=== PATIENT | female | born 1990 | race Caucasian/White ===

== ENCOUNTER 2016-09-26 06:00 | Inpatient (IN) ==
--- NOTE | 2016-09-26 08:59 | OB/GYN History & Physical ---
Date of Encounter: 09/26/16 Time of Encounter: 08:54 Assessment and Plan (1) 39 weeks gestation of Current visit: Yes Status: Acute Patient is a at 39.3 weeks with no complications presents for induction. Plan to proceed with induction of labor and expectant management. History of Present Illness Chief complaint: Induction, at 39.3 weeks HPI: Ms. Corley is a 26 year old female at 39.3 weeks with medical history including vaginal adhesion removal in 1994, history of seizures, and oral cold sores who present for induction of labor. Patient denies vaginal discharge or bleeding and contractions. Patient reports good movement. No complications reported for this . Denies fevers, chills, sweats, changes in vision or hearing, nausea, vomiting, chest pain, shortness of breath , abdominal pain, changes in bowels or bladder, dysuria, weakness, or loss of sensation. Patient reports lower extremity swelling. GBS negative, B positive Hep B negative, Hep C negative, HIV negative, Rubella positive, Treponema negative, varicella unknown Past Med Surg Social Fam HX - Past Medical History Source: patient, old records reviewed Medical history: seizures Psychiatric history: anxiety - Past Surgical History Surgical History: other (vaginal adhesions 1994) - Social History Smoking Status: Never smoker Smokeless Tobacco Status: No Alcohol use: none Drug use: none Occupational status: employed Current living situation: Home - Independent, With Family Activity Level: Independent ambulation Recent Out of Country Travel Within the Last 8 Weeks: No Exposure or Possible Exposure to Illness During Travel: No - Family History Mother Adopted: No Living Status: Still Living Hx Family Cardiac Disorders: Yes (htn) Hx Family Respiratory Disorders: No Hx Family Cancer: No Hx Family GI Disorders: No Hx Family Endocrine Disorder: No Hx Family Neuromuscular Disorders: No Hx Family Neurologic Disorders: No Hx Family HEENT Disorders: No Hx Family Autoimmune Disorders: No Father Hx Family Cardiac Disorders: No Hx Family Respiratory Disorders: No Hx Family Cancer: No Hx Family GI Disorders: No Hx Family Genitourinary Disorders: No Hx Family Endocrine Disorder: No Hx Family Musculoskeletal Disorders: No Hx Family Neuromuscular Disorders: No Hx Family Neurologic Disorders: No Hx Family HEENT Disorders: No Hx Family Autoimmune Disorders: No Hx Family Reproductive Disorders: No Hx Family Psychosocial Disorders: No Hx Family Medical Disorders: No Obstetrical History - Pregnancies : 2 Para: 0 Term: 0 : 0 Ab's: 1 Livin Medications and Allergies Ferrous Sulfate [Iron] 1 tab PO DAILY 08/01/16 [History] Vit Calc,Iron,Folic [ Vitamins] 1 tab PO DAILY 08/01/16 [ History] Allergies No Known Allergies Allergy (Verified 09/26/16 09:21) Review of System OB - Constitutional Constitutional ROS IM: as per HPI, no chills, no fever(s), no headache(s), no weakness - Nose, mouth, and throat Nose, mouth and throat: as per HPI, other (lower lip cold sore since two days ago), no dysphagia, no headache(s) - Cardiovascular Cardiovascular: as per HPI, edema, no chest pain, no dyspnea, no lightheadedness - Respiratory Respiratory: as per HPI, no cough, no dyspnea - Gastrointestinal Gastrointestinal: as per HPI, no abdominal pain, no change in bowel habits, no dysphagia, no nausea, no vomiting - Genitourinary Genitourinary: as per HPI, no dysuria, no flank pain - Muscloskeletal Musculoskeletal: as per HPI, no neck pain, no numbness - Integumentary Integumentary: as per HPI, no rash - Neurological Nerological: as per HPI, no headache(s), no numbness, no tingling Exam - Constitutional Constitutional: well developed, well nourished, no acute distress, average body habitus - HEENT HEENT: EOMI, Normocephaly, Mucus Membranes Moist - Neck Neck exam: full ROM, normal inspection - Lungs Respiratory exam: CTAB - Cardiovascular Cardiovascular exam: RRR, +S2 - Abdomen Abdomen: Present: bowel sounds normal, gravid, non tender - Extremities Extremities exam: pedal edema (2+ pitting edema) Results All other labs normal.
[2016-09-26] MEDS ORDERED: Naloxone 0.4 MG/ML INJ IVP PRN (09:44)
[2016-09-26] MEDS ORDERED: Metoclopramide 10 MG/2 ML VIAL IVP PRN (09:44)
[2016-09-26] MEDS ORDERED: Famotidine 20 MG/2 ML VIAL IVP PRN (09:44)
[2016-09-26] MEDS ORDERED: miSOPROStol 25 MCG TABLET PO ONE (09:49)
[2016-09-26 10:28] LABS: Basophils % 0.4 %; Eosinophils # 0.1 K/mcL (0.0-0.6); Hematocrit 29.4 % (35.3-44.9); Lymphocytes # 2.1 K/mcL (0.6-4.6); Lymphocytes % 22.6 %; Mean Corpuscular Hemoglobin 29.2 pg (28.0-33.3); Mean Corpuscular Volume 85.7 fL (83.0-100.0); Mean Platelet Volume 10.8 fL (9.4-12.4); Monocytes # 0.8 K/mcL (0.0-1.3); Monocytes % 8.3 %; Neutrophils # 6.2 K/mcL (1.6-8.9); Platelet Count 182 K/mcL (140-400); Red Blood Count 3.43 M/mcL (3.82-4.97); Red Cell Distribution Width 14.7 % (11.5-14.5); Segmented Neutrophils % 66.7 %
[2016-09-26] MEDS: Ringers Solution, Lactated 1,000 ML IVC SCH ×3 (10:28→21:37)
[2016-09-26 10:48] LABS: Alanine Aminotransferase 16 Units/L (0-55); Aspartate Amino Transferase 22 Units/L (5-34); BUN/Creatinine Ratio 14 (6-26); Blood Urea Nitrogen 8 mg/dL (7-20); Lactate Dehydrogenase 186 Units/L (159-327); eGFR For African Americans > 60 (> 60); eGFR For Non-African Americans > 60 (> 60)
--- NOTE | 2016-09-26 13:30 | OB Labor Progress Note ---
Date of Encounter: 09/26/16 Time of Encounter: 13:28 Labor Progress Note - Subjective Subjective: Pt with minimal discomfort. - Cervix Cervix: 1-2/70/-2 - Heart Tones Heart Tones: Category I - [place]: irregular - Interventions Interventions: Mujica placed in cervix. Balloon inflated with 30ml sterile water. Pt tolerated well. - Plan Plan: Continue to monitor. Epidural when requested. Anticipate
[2016-09-26] MEDS ORDERED: Oxytocin 20 units/ LR 1000 mL 20 UNIT/1,000 ML BAG IVC ONE (14:25)
[2016-09-26] MEDS: Oxytocin 20 units/ LR 1000 mL 20 UNIT/1,000 ML BAG IVC SCH (14:35)
--- NOTE | 2016-09-26 15:06 | OB Labor Progress Note ---
Date of Encounter: 09/26/16 Time of Encounter: 15:02 Labor Progress Note - Subjective Subjective: Pt continues to report minimal discomfort. - Cervix Cervix: 4/80/-1 - Heart Tones Heart Tones: Category I - [place]: Q2 - Interventions Interventions: AROM for moderate amount light MSF. IUPC placed - Plan Plan: Continue to monitor and titrate Pitocin for adequate contractions. Epidural when needed. Anticipate .
[2016-09-26] MEDS ORDERED: *HR* Ropivacaine/PF 0.2% 10 ML AMPUL EP ONE (16:26)
[2016-09-26] MEDS ORDERED: *HR* FentaNYL (PF) 100 MCG/2 ML VIAL EP ONE (16:26)
[2016-09-26] MEDS ORDERED: Ringers Solution, Lactated 500 ML IVC ONE (16:26)
[2016-09-26] MEDS ORDERED: EPHEDrine 50 MG/ML VIAL IVP PRN (16:26)
--- NOTE | 2016-09-26 16:28 | Anesthesia Evaluation PreOp ---
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) Other Medical History: Denies Any Significant HX Anesthesia History: No Prior Anesthetic Complications, Past Anesthesia : Yes Alcohol Use: none Drug use: none Medications and Allergies Ferrous Sulfate [Iron] 1 tab PO DAILY 08/01/16 [History] Vit Calc,Iron,Folic [ Vitamins] 1 tab PO DAILY 08/01/16 [ History] Allergies No Known Allergies Allergy (Verified 09/26/16 09:21) - Meds/Allergy Pre-op Review Medications Reviewed: Yes Allergies Reviewed: Yes Beta Blockers on Current Med List: No Anesthesia Results - Labs 09/26/16 10:10 09/26/16 10:10 Anesthesia Exam Height: 1.63m Weight: 89kg Pain Scale: 6 Pain Scale Used: Numeric (1 - 10) - HEENT Pupil (Motor): Pupils equal Mallampati: II Teeth: Normal Oral Opening: Greater than 3 - PLUMBER HELPER LOC: Oriented PLUMBER HELPER Motor: Normal RUE, Normal LUE, Normal RLE, Normal LLE, Normal Face PLUMBER HELPER Sensory: Normal: RUE, LUE, RLE, LLE, Face - Cardiac Rhythm: Regular Murmur: None - Pulmonary Breath Sounds: bilateral Clear Respiratory Effort: Symmetrical Anesthesia Assess/Plan ASA Score: 2 Modified Vero Scale for Level of Consciousness: Cooperative, oriented, and tranquil Anesthetic Plan: Regional Monitoring Plan: Standard Monitors Recovery Plan: Other
[2016-09-26] MEDS ORDERED: *HR* FentaNYL (PF) 100 MCG/2 ML VIAL ONE (16:29)
[2016-09-26] MEDS ORDERED: Epidural Premix (fent/bupiv) 110 ML EP SCH (16:30)
[2016-09-26] MEDS ORDERED: Epidural Premix (fent/bupiv) 110 ML EP ONE ×2 (16:30→23:47)
[2016-09-26] MEDS ORDERED: *HR* Ropivacaine/PF 0.2% 10 ML AMPUL ONE (16:30)
--- NOTE | 2016-09-26 16:53 | Anesthesia Procedures ---
Date of Encounter: 09/26/16 Time of Encounter: 16:34 Procedures: Anesthesia - Epidural/Spinal Patient ID/Chart reviewed: Yes Patient examined: Yes OB Eval: Gestational age: 39.3 OB Eval: : 2 OB Eval: Hx Para: 0 OB Eval: Contractions: Non-stressed pattern Consent Obtained: Yes Supplemental Oxygen: None/Room Air Site Prep: Aseptic Technique, Sterile prep and drape, 0.5% Chlorhexidine/Alcohol Patient position: upright Local Anesthetic: Lidocaine 1% Amount of Local Anesthetic used: 2.5 Touhy Needle Gauge: 18 Touhy Needle Depth (cm): 8 Catheter Depth at Skin (cm): 14 Test Dose (1.5% Lido + Epi): Volume given (mls): 4 Test Dose Result: Negative Loading Dose: Fentanyl (mcg): 100 Loading Dose: Other: Ropivacaine 0.2% 10mL Loading Dose Administered: Thru Catheter Infusion Med: 0.125% Bupivacaine w/ 2 mcg/ml Fentanyl Infusion Rate (mls/hr): 14 (bolus 4mL q15min; max 3/hour) Catheter Secured in Place: Tegaderm Interspace Used: L3-L4 Loss of Resistance (VCIKI): Yes Blood: No CSF: No Paresthesia: No Vitals + FHT's: VSS and FHR stable throughout. See nursing documentation.
[2016-09-26] MEDS ORDERED: Ondansetron 4 MG/2 ML VIAL IVP ONE (17:19)
[2016-09-27] MEDS ORDERED: Ondansetron 4 MG/2 ML VIAL IVP ONE (01:29)
--- NOTE | 2016-09-27 03:49 | OB Labor Progress Note ---
Date of Encounter: 09/27/16 Time of Encounter: 03:46 Labor Progress Note - Subjective Subjective: Pt is comfortable with epidural. - Cervix Cervix: c/c/+1 - Heart Tones Heart Tones: RNST - [place]: UC's q 60-90 seconds - Plan Plan: Willl cont. labor
[2016-09-27] MEDS ORDERED: Epidural Premix (fent/bupiv) 110 ML EP ONE (04:20)
[2016-09-27] MEDS ORDERED: Acetaminophen 325 MG TABLET PO ONE (04:43)
--- NOTE | 2016-09-27 07:16 | OB/GYN Procedure Note ---
Delivery - Delivery Date: 09/27/16 Provider: Shravan Betts Intrapartum events: meconium Delivery induction: jeffery, misoprostol Delivery augmentation: rupture of membranes Delivery monitor: external FHT, internal uterine Anesthesia: epidural Estimated Blood Loss: 350 - Infant (s) A Delivery Date: 09/27/16 Delivery Time: 06:48 Presentation: vertex Position: VANDANA Route of delivery: Gender: Female Viability: Viable Pounds: 8 Ounces: 5 at 1 minute: 8 at 5 mins: 8 Shoulder Dystocia: not encountered Specimens collected: cord blood Placenta: spontaneous Cord: nuchal cord, 3 umbilical vessels, nuchal reduced - Repair Episiotomy: none Laceration Description: Periurethral, Perineal - 1st Degree, Vaginal (Bilateral vaginal tears, superficial, left labial superficial and 1st degree lac with repair with 3-0 Vicryl) - Complications Delivery complications: none - Disposition Mom disposition: stable in LDR [place] disposition: stable in LDR - Comments Comments: Pt s/p without incident. MSF was present, RT and nursery staff were present for delivery.
[2016-09-27] MEDS: Oxytocin 20 units/ LR 1000 mL 20 UNIT/1,000 ML BAG IVC SCH (07:57)
[2016-09-27] MEDS ORDERED: Ibuprofen 600 MG TABLET PO PRN (09:38)
[2016-09-27] MEDS ORDERED: Oxytocin 20 units/ LR 1000 mL 20 UNIT/1,000 ML BAG IVC ONE (09:38)
[2016-09-27] MEDS ORDERED: Rho Immune Globulin 1,500 UNIT SYRINGE IM PRN (09:38)
[2016-09-27] MEDS ORDERED: Oxytocin 20 units/ LR 1000 mL 20 UNIT/1,000 ML BAG IV SCH (09:38)
[2016-09-27] MEDS ORDERED: Measles/Mumps/Rubella Vacc 0.5 ML VIAL SQ PRN (09:38)
[2016-09-27] MEDS ORDERED: Prenatal Vit/FA 1 EACH TABLET PO SCH (09:38)
[2016-09-27] MEDS ORDERED: Acetaminophen 325 MG TABLET PO PRN (09:38)
[2016-09-27] MEDS ORDERED: Benzocaine/Menthol 56 GM AEROSOL SPRAY TP PRN (21:13)
[2016-09-27] MEDS ORDERED: Benzocaine/Menthol 56 GM AEROSOL SPRAY TP ONE (21:22)
[2016-09-28 03:52] LABS: Basophils % 0.2 %; Eosinophils # 0.2 K/mcL (0.0-0.6); Eosinophils % 0.8 %; Hematocrit 25.3 % (35.3-44.9); Lymphocytes % 14.5 %; Mean Corpuscular HGB Conc 33.2 g/dL (31.6-35.5); Mean Corpuscular Hemoglobin 29.1 pg (28.0-33.3); Mean Corpuscular Volume 87.5 fL (83.0-100.0); Mean Platelet Volume 10.8 fL (9.4-12.4); Monocytes # 1.2 K/mcL (0.0-1.3); Monocytes % 6.4 %; Neutrophils # 14.1 K/mcL (1.6-8.9); Platelet Count 159 K/mcL (140-400); Red Blood Count 2.89 M/mcL (3.82-4.97); Red Cell Distribution Width 14.7 % (11.5-14.5); Segmented Neutrophils % 77.1 %
[2016-09-28 03:53] LABS: Hemoglobin 8.4 g/dL (11.5-15.4); Lymphocytes # 2.7 K/mcL (0.6-4.6)
[2016-09-28 08:28] VITALS: BP 128/83
--- NOTE | 2016-09-28 09:46 | Discharge Summary ---
Date of Encounter: 09/28/16 Time of Encounter: 09:43 - Discharge Diagnosis (1) (normal spontaneous vaginal delivery) Priority: Primary Status: Acute (2) anemia Priority: Secondary Status: Acute - Discharge Medications Prescriptions: Ibuprofen [Motrin] 600 mg PO Q6HR PRN #60 tablet PRN Reason: Cramping Docusate [Colace] 100 mg PO BID #60 capsule Ferrous Sulfate [Iron] 1 tab PO DAILY #30 tablet Home Medications: Vit Calc,Iron,Folic [ Vitamins] 1 tab PO DAILY 08/01/16 [ History] Benzocaine/Menthol Walling [Dermoplast Walling] 1 appl TP QID PRN #0 aerosol [Rx] Docusate [Colace] 100 mg PO BID #60 capsule 09/28/16 [Rx] Ferrous Sulfate [Iron] 1 tab PO DAILY #30 tablet 09/28/16 [Rx] Ibuprofen [Motrin] 600 mg PO Q6HR PRN #60 tablet 09/28/16 [Rx] Mupirocin [Bactroban Oint] 1 appl NS BID tube 09/28/16 [Rx] Allergies/Adverse Reactions: Allergies No Known Allergies Allergy (Verified 09/26/16 09:21) Data Procedures and tests throughout hospitalization: Laboratory Tests 09/26/16 09/26/16 09/26/16 10:10 10:10 10:10 WBC 9.4 RBC 3.43 L Hgb 10.0 L Hct 29.4 L MCV 85.7 MCH 29.2 MCHC 34.0 RDW 14.7 H Plt Count 182 MPV 10.8 Immature Gran % 1.0 Seg Neutrophils % 66.7 Lymphocytes % 22.6 Monocytes % 8.3 Eosinophils % 1.0 Basophils % 0.4 Neutrophils # 6.2 Lymphocytes # 2.1 Monocytes # 0.8 Eosinophils # 0.1 Basophils # 0.0 BUN 8 Creatinine 0.57 Est GFR ( Amer) > 60 Est GFR (Non-Af Amer) > 60 BUN/Creatinine Ratio 14 Uric Acid 5.0 AST 22 ALT 16 Lactate Dehydrogenase 186 VZV IgG Antibody Positive 09/28/16 03:23 WBC 18.3 H D RBC 2.89 L Hgb 8.4 L D Hct 25.3 L MCV 87.5 MCH 29.1 MCHC 33.2 RDW 14.7 H Plt Count 159 MPV 10.8 Immature Gran % 1.0 Seg Neutrophils % 77.1 Lymphocytes % 14.5 Monocytes % 6.4 Eosinophils % 0.8 Basophils % 0.2 Neutrophils # 14.1 H Lymphocytes # 2.7 Monocytes # 1.2 Eosinophils # 0.2 Basophils # 0.0 BUN Creatinine Est GFR ( Amer) Est GFR (Non-Af Amer) BUN/Creatinine Ratio Uric Acid AST ALT Lactate Dehydrogenase VZV IgG Antibody Labs on day of discharge: Labs from last 24 hours 09/28/16 09/26/16 03:23 10:10 WBC 18.3 H D RBC 2.89 L Hgb 8.4 L D Hct 25.3 L MCV 87.5 MCH 29.1 MCHC 33.2 RDW 14.7 H Plt Count 159 MPV 10.8 Immature Gran % 1.0 Seg Neutrophils % 77.1 Lymphocytes % 14.5 Monocytes % 6.4 Eosinophils % 0.8 Basophils % 0.2 Neutrophils # 14.1 H Lymphocytes # 2.7 Monocytes # 1.2 Eosinophils # 0.2 Basophils # 0.0 VZV IgG Antibody Positive Date of admission: 09/26/16 06:08 Primary care physician: Glenn Rosario MD Consults: 09/27/16 09:38 Consult to Lab Tester [CONS] Routine Comment: Vaginal delivery, consult needed Discharging clinician: Tova Calderon Anticipated date of discharge: 09/28/16 - Patient Status Disposition: Home, Self-Care Condition: Good Functional capacity at discharge: independent ambulation Overall status at discharge: patient is progressing back to baseline - Discharge Instructions Follow Up With: Glenn Rosario MD [Primary Care Provider] - Shravan Betts MD [Partnered Physician] - - Diet and Activity Activity: increase activity as tolerated Diet: advance to your usual diet Hospital Course Reason for admission: induction of labor Delivery: Episiotomy: none Laceration: vaginal side wall, 1st degree, other (Bilateral vaginal tears, superficial, left labial superficial and 1st degree lac) Other procedures: none complications: none Discharge diagnosis: IUP at term delivered baby: female Hospital course: - Delivery Date: 09/27/16 Provider: Shravan Betts Intrapartum events: meconium Delivery induction: jeffery, misoprostol Delivery augmentation: rupture of membranes Delivery monitor: external FHT, internal uterine Anesthesia: epidural Estimated Blood Loss: 350 - (s) Infant A Delivery Date: 09/27/16 Infant Delivery Time: 06:48 Presentation: vertex Position: VANDANA Route of delivery: Gender: Female Viability: Viable Pounds: 8 Ounces: 5 at 1 minute: 8 at 5 mins: 8 Shoulder Dystocia: not encountered Specimens collected: cord blood Placenta: spontaneous Cord: nuchal cord, 3 umbilical vessels, nuchal reduced - Repair Episiotomy: none Laceration Description: Periurethral, Perineal - 1st Degree, Vaginal (Bilateral vaginal tears, superficial, left labial superficial and 1st degree lac with repair with 3-0 Vicryl) - Complications Delivery complications: none - Disposition Mom disposition: home PPD#1 disposition: home with mother, Time Attestation: Total time spent providing and/or coordinating discharge services: Time Spent: Less than 30 minutes Exam - Constitutional Vitals: Temp Pulse Resp BP Pulse Ox 97.8 F 83 16 128/83 97 09/28/16 07:50 09/28/16 07:50 09/28/16 07:50 09/28/16 07:50 09/28/16 07:50 General appearance IM: A&O X 3, pleasant, no acute distress - Respiratory Respiratory exam: Present: CTAB - Cardiovascular Cardiovascular exam IM: Present: RRR, +S1, +S2 - GI/Abdominal GI/Abdominal exam IM: soft - Uterine Tone: Firm Uterus Position: 1 Finger Below Umbilicus - Extremities Exam Extremities exam IM: Present: normal inspection - Neurological Exam Neurological exam: normal gait, oriented X3 - Psychiatric Additional comments: reports good mood
== END 2016-09-28 12:58 | disposition home or self-care (01) | DRG 774 ==
LOC: 1NENULAB 06:08 → 1NENUOBS 09-27 09:45
PROVIDERS: ADMIT Obstetrics & Gynecology; ATTEND Obstetrics & Gynecology

== ENCOUNTER → 2019-11-03 22:41 | Observation (INO) ==
[2019-11-03 22:16] LABS: Bilirubin,Urine Negative (Negative); Blood,Urine Negative (Negative); Clarity,Urine Clear (Clear); Color,Urine Yellow (Yellow); Glucose,Urine (UA) Normal (Normal); Ketones,Urine Negative (Negative); Leukocyte Esterase,Urine Trace (Negative); Nitrite,Urine Negative (Negative); PH,Urine 6.5 pH Units (5.0-8.0); Protein,Urine Negative (Neg-Trace); Specific Gravity,Urine 1.018 (1.010-1.025); Urobilinogen,Urine Normal (Normal)
[2019-11-03 22:27] LABS: Bacteria,Urine Few per hpf (None-Few); Hyaline Casts,Urine None Seen per lpf (None-Few); RBC,Urine 0-3 per hpf (0-3); Squamous Epithelial Cell,Urine Many per lpf (None-Few); WBC,Urine 0-3 per hpf (0-3)
== END | disposition home or self-care (01) ==
LOC: 1NENULAB
PROVIDERS: ADMIT Advanced Practice Midwife; ATTEND Advanced Practice Midwife

== ENCOUNTER 2020-02-20 10:00 | Inpatient (IN) ==
[2020-02-20] MEDS ORDERED: EPHEDrine 50 MG/ML VIAL IVP PRN (13:02)
[2020-02-20] MEDS ORDERED: Epidural Premix (fent/bupiv) 110 ML EP SCH (13:15)
[2020-02-20] MEDS ORDERED: miSOPROStoL 25 MCG TABLET PO PRN (13:31)
[2020-02-20] MEDS ORDERED: Naloxone 0.4 MG/ML INJ IVP PRN (13:33)
[2020-02-20] MEDS ORDERED: Metoclopramide 10 MG/2 ML VIAL IVP PRN (13:33)
[2020-02-20] MEDS ORDERED: Famotidine 20 MG/2 ML VIAL IVP PRN (13:33)
[2020-02-20 14:25] LABS: Basophils # 0.1 K/mcL (0.0-0.2); Basophils % 0.7 %; Eosinophils # 0.2 K/mcL (0.0-0.6); Eosinophils % 1.6 %; Hematocrit 35.4 % (35.3-44.9); Immature Granulocytes % 3.8 % (0-4); Lymphocytes # 2.2 K/mcL (0.6-4.6); Lymphocytes % 19.7 %; Mean Corpuscular HGB Conc 33.9 g/dL (31.6-35.5); Mean Corpuscular Hemoglobin 30.8 pg (28.0-33.3); Mean Platelet Volume 11.1 fL (9.4-12.4); Monocytes # 0.8 K/mcL (0.0-1.3); Monocytes % 7.5 %; Neutrophils # 7.5 K/mcL (1.6-8.9); Platelet Count 162 K/mcL (140-400); Red Blood Count 3.89 M/mcL (3.82-4.97); Red Cell Distribution Width 15.7 % (11.5-14.5); Segmented Neutrophils % 66.7 %; White Blood Count 11.2 K/mcL (4.3-11.1)
[2020-02-20 14:32] LABS: Amphetamine Screen,Urine Negative ng/mL (Cutoff=1000); Barbiturate Screen,Urine Negative ng/mL (Cutoff=200); Benzodiazepines Screen,Urine Negative ng/mL (Cutoff=200); Cannabinoid Screen,Urine Negative ng/mL (Cutoff = 50); Cocaine Screen,Urine Negative ng/mL (Cutoff= 300); Opiate Screen,Urine Negative ng/mL (Cutoff=300); Phencyclidine Screen,Urine Negative ng/mL (Cutoff=25)
[2020-02-20] MEDS ORDERED: Ringers Solution, Lactated 1,000 ML ONE ×2 (14:44→23:27)
[2020-02-20] MEDS: Oxytocin 20 units/ LR 1000 mL 20 UNIT/1,000 ML BAG IVC SCH (19:36)
[2020-02-21] MEDS: Ringers Solution, Lactated 1,000 ML IVC SCH ×3 (00:03→08:47)
[2020-02-21] MEDS: Oxytocin 20 units/ LR 1000 mL 20 UNIT/1,000 ML BAG IVC SCH (11:55)
[2020-02-21] MEDS ORDERED: Rho Immune Globulin 1,500 UNIT SYRINGE IM PRN (13:21)
[2020-02-21] MEDS ORDERED: Measles/Mumps/Rubella Vacc 0.5 ML VIAL SQ PRN (13:21)
[2020-02-21] MEDS ORDERED: Acetaminophen 325 MG TABLET PO PRN (13:21)
[2020-02-21] MEDS ORDERED: Oxytocin 20 units/ LR 1000 mL 20 UNIT/1,000 ML BAG IVC SCH (13:21)
[2020-02-21] MEDS ORDERED: Oxytocin 20 units/ LR 1000 mL 20 UNIT/1,000 ML BAG IVC ONE (13:21)
[2020-02-22 07:49] LABS: Basophils # 0.1 K/mcL (0.0-0.2); Basophils % 0.5 %; Eosinophils # 0.2 K/mcL (0.0-0.6); Hematocrit 35.8 % (35.3-44.9); Hemoglobin 11.7 g/dL (11.5-15.4); Immature Granulocytes % 2.4 % (0-4); Lymphocytes # 2.6 K/mcL (0.6-4.6); Lymphocytes % 15.1 %; Mean Corpuscular HGB Conc 32.7 g/dL (31.6-35.5); Mean Corpuscular Hemoglobin 30.8 pg (28.0-33.3); Mean Corpuscular Volume 94.2 fL (83.0-100.0); Mean Platelet Volume 11.1 fL (9.4-12.4); Monocytes # 1.4 K/mcL (0.0-1.3); Monocytes % 7.8 %; Neutrophils # 12.7 K/mcL (1.6-8.9); Platelet Count 157 K/mcL (140-400); Red Cell Distribution Width 15.7 % (11.5-14.5); Segmented Neutrophils % 73.2 %
[2020-02-22 07:50] LABS: White Blood Count 17.4 K/mcL (4.3-11.1)
[2020-02-22 07:58] VITALS: BP 116/69
[2020-02-22] MEDS ORDERED: Prenatal Vit/FA 1 EACH TABLET PO SCH (09:00)
== END 2020-02-22 11:47 | disposition home or self-care (01) | DRG 806 ==
LOC: 1NENULAB 12:04 → 1NENUOBS 02-21 12:55
PROVIDERS: ADMIT Obstetrics & Gynecology; ATTEND Obstetrics & Gynecology